=== PATIENT | female | born 1940 | race African-American/Black ===

== ENCOUNTER 2018-03-17 13:26 | Emergency (ER) | payer OTHER ==
[~2018-03-17] VITALS: Ht 157.5 cm; Wt 74.4 kg
[~2018-03-17 13:26] MED LIST: CATAFLAM50 MG PO; LOTREL 5-10 MG1 CAP PO; ORPH100T PO; ULTRACET PO
[2018-03-17] MEDS ORDERED: GLYBURIDE2.5 MG PO (13:59)
== END 2018-03-17 21:33 | disposition home or self-care (01) ==
LOC: ER 13:26
DX: K57.32 Diverticulitis of large intestine without perforation or abscess without bleeding (principal)

== ENCOUNTER 2018-08-02 10:38 | Day surgery (SDC) | payer OTHER ==
[~2018-08-02 10:38] MED LIST changes: +GLYBURIDE2.5 MG PO
== END 2018-08-02 15:15 | disposition home or self-care (01) ==
LOC: AMB-ENDOS 10:38
DX: K57.30 Diverticulosis of large intestine without perforation or abscess without bleeding (principal); K64.8 Other hemorrhoids; D13.1 Benign neoplasm of stomach

== ENCOUNTER 2018-08-14 13:58 | Emergency (ER) | payer OTHER ==
[~2018-08-14] VITALS: Ht 157.5 cm; Wt 78.9 kg
[2018-08-14] MEDS ORDERED: ZETIA10 MG (14:36)
== END 2018-08-14 19:16 | disposition home or self-care (01) ==
LOC: ER 13:58
DX: K59.09 Other constipation (principal); R10.32 Left lower quadrant pain; R10.12 Left upper quadrant pain

== ENCOUNTER 2019-11-21 00:05 | Emergency (ER) | payer OTHER ==
[~2019-11-21] VITALS: Ht 157.5 cm; Wt 75.3 kg
[~2019-11-21 00:05] MED LIST changes: +ZETIA10 MG
[2019-11-21] MEDS ORDERED: DICLOFENAC SODI75 MG PO (00:58)
== END 2019-11-21 01:03 | disposition home or self-care (01) ==
LOC: ER 00:05
DX: M25.512 Pain in left shoulder (principal)

== ENCOUNTER 2024-12-14 16:31 | Emergency (ER) | payer OTHER ==
[~2024-12-14] VITALS: Ht 165.1 cm; Wt 79.4 kg
[~2024-12-14 16:31] MED LIST changes: +DICLOFENAC SODI75 MG PO
[2024-12-14] MEDS ORDERED: NEURONTIN300 MG PO (16:52)
[2024-12-14] MEDS ORDERED: GLYBURIDE2.5 MG PO (16:52)
[2024-12-14] MEDS ORDERED: KETOROLAC TROMETHAMINE 60 MG VIAL IM ONE ×2 (18:40→18:45)
[2024-12-14] MEDS ORDERED: DEXAMETHASONE SODIUM PHOSPHATE 4 MG/ML VIAL ONE (18:40)
[2024-12-14] MEDS ORDERED: DEXAMETHASONE SODIUM PHOSPHATE 4 MG/ML VIAL IM ONE (18:45)
== END 2024-12-14 18:53 | disposition home or self-care (01) ==
LOC: ER 16:33
DX: E11.40 Type 2 diabetes mellitus with diabetic neuropathy, unspecified (principal); I10 Essential (primary) hypertension; E11.9 Type 2 diabetes mellitus without complications; Z88.5 Allergy status to narcotic agent